=== PATIENT | female | born 1970 | race Caucasian/White ===

== ENCOUNTER 2017-05-16 09:55 | Day surgery (SDC) | payer OTHER ==
[~2017-05-16] VITALS: Ht 162.6 cm; Wt 128.8 kg
--- NOTE | 2017-05-16 09:30 | NUR ---
PT CALLED AND ASKED TO COME IN FOR HER PROCEEDURE SOON SHE COULD PER MD REQUEST. PT STATS SHE WILL BE ON HER WAY SHORTLY.
--- NOTE | 2017-05-16 09:41 | NUR ---
05/16/17 0941 Elis Cedillo 0931 PATIENT ARRIVES UNRESPONSIVE, ORAL AND NASAL AIRWAY IN PLACE. MASK AT 10 LITERS. 0940 PATIENT DOES NOT OPEN EYES TO VERBAL STIMULI, BUT DOES MOVE ARMS IF TO REACH FOR AIRWAY, BUT THEN PUTS ARMS BACK DOWN.
[~2017-05-16 09:55] MED LIST: 5-HTP50 MG PO; BIOTIN5 MG PO; GARCINIA CAMBO1 EACH PO; MAGNESIUM250 M1 PO; MULTIVITAMINS1 EAC7 PO; OSTEO BI-FLEX1 EAC2 PO
[2017-05-16] MEDS ORDERED: ALEVE220 MG PO (10:10)
--- NOTE | 2017-05-16 12:27 | NUR ---
1220 - PT RETURNED FROM PACU. MAINTAINING OWN AIRWAY, ON 2 L NC TO INCREASE O2 SAT WHILE SLEEPING. PT MAINTAINING O2 SAT ABOVE 94%. FAMILY AT BEDSIDE. PT REPORTS 0/10 PAIN AND DENIES NAUSEA. WATER PROVIDED. PT WOULD NOT LIKE ANY SIPS OF WATER AT THIS TIME. BED RAILS UP. CALL LIGHT WITHIN REACH.
[2017-05-16] MEDS ORDERED: MOTRIN IB200 MG PO (12:52)
[2017-05-16] MEDS ORDERED: NORCO 5-325 TA1 EACH PO (12:52)
--- NOTE | 2017-05-16 13:30 | NUR ---
1330 - ARRIVED TO PT ROOM AFTER LUNCH BREAK (RN WHO TOOK OVER WAS UNABLE TO CHECK ON PT). PT HAD REMOVED NC AND HAD NO O2 RUNNING. PT O2 STAT AT 90-92% ON ROOM AIR. NC REAPPLIED, O2 AT 3L BY NC AND PT MAINTAINING O2 SAT ABOVE 94%. PT ASKES TO GET UP TO GO TO THE BATHROOM BUT WAS TOO DIZZY TO STAND UP AND WALK. PT ABLE TO SIT ON EDGE OF BED. IMPORTANCE OF O2 REINFORCED WITH PT. PT AGREES NOT TO REMOVE NC UNTIL ADVISED BY AN RN. FAMILY REMAINS AT BEDSIDE. BED RAILS UP, CALL LIGHT WITHIN REACH. PT REPORTS 1/10 PAIN AND STATES THAT SHE DOES NOT WANT MEDICATION AT THSI TIME.
--- NOTE | 2017-05-16 14:00 | NUR ---
1400 - PT CARE TRANSFERED TO SUSIE COHN. REPORT GIVEN. QUESTIONS ANSWERED.
--- NOTE | 2017-05-16 14:38 | NUR ---
PT REQUESTED O2 OFF, SAO2 RA 96%, INSTR RE CDB INTERMITTENTLY. FAMILY AT BEDSIDE."NOT QUITE READY TO ATTEMPT TO VOID YET". TOOK SNACK OK. PAIN 1/10, MOSTLY MUSCLE ACHES.
--- NOTE | 2017-05-16 15:15 | NUR ---
AMB TO BR TO VOID-300 CC CLEAR YELLOW. N/V AFTER GETTING BACK TO ROOM. REGLAN GIVEN SLOW IV PUSH. PT LAYING DOWN,STATED NOT NAUSEATED NOW.PT DID PAD CHANGE WITH SMALL AMT BLEEDING NOTED WHEN UP TO VOID IN BATHROOM.
--- NOTE | 2017-05-16 15:23 | NUR ---
PT UP TO BATHROOM WITH ASSIST .VOIDED 300 CC CLEAR URINE, MIGUELITO CARE X 1 PER PT, SMALL AMT OF BLEEDING. AMB BACK TO ROOM WITHOUT CHANGE IN LEVEL OF CONSCIOUSNESS. EMESIS 300 CC IN ROOM. REGLIN GIVEN SLOW IV PUSH. STATED NO MORE NAUSEA.BP 136/80, SAO2 95% RA,CDB WELL.FAMILY AT BEDSIDE. PT BACKIN BED RESTING AGAIN.
--- NOTE | 2017-05-16 16:00 | NUR ---
PT SITTING ON SIDE OF BED, SMILING. MOTRIN GIVEN PER ORDER."READY TO GO HOME". IV DCD-SITE/DRESSING INTACT. 1610-D/C INSTR GIVEN TO PT/FAMILY.D/C TO HOME PER WC.
== END 2017-05-16 16:08 | disposition home or self-care (01) ==
LOC: DS 09:55
PROVIDERS: Obstetrics & Gynecology
PROC: 0UDB8ZX Extraction of Endometrium, Via Natural or Artificial Opening Endoscopic, Diagnostic (ICD-10-PCS; principal; 2017-05-16 12:00)
DX: N84.0 Polyp of corpus uteri (principal); E66.01 Morbid (severe) obesity due to excess calories; E28.2 Polycystic ovarian syndrome; E78.00 Pure hypercholesterolemia, unspecified; J45.20 Mild intermittent asthma, uncomplicated; Z90.89 Acquired absence of other organs; Z68.42 Body mass index [BMI] 45.0-49.9, adult; Z79.899 Other long term (current) drug therapy
CPT/HCPCS: 00952; J1100; J1885; J2250; J2405; J2704; J2765; J3010; J7120